=== PATIENT | male | born 1990 | race American Indian/Alaskan Native ===

== ENCOUNTER 2017-03-16 18:49 | Inpatient (IN) | payer OTHER ==
[2017-03-16 20:09] LABS: Basophils # (Auto) 0.1 K/mm3 (0.0-0.1); Basophils % (Auto) 0.4 % (0.0-1.8); Hematocrit 46.6 % (35.5-45.6); Lymphocytes # (Auto) 1.4 K/mm3 (1.2-5.4); Lymphocytes % (Auto) 9.6 % (13.4-35.0); Mean Corpuscular HGB Conc 35 % (32-34); Mean Corpuscular Hemoglobin 33 pg (28-32); Mean Corpuscular Volume 96 fl (84-94); Monocytes # (Auto) 0.8 K/mm3 (0.0-0.8); Monocytes % (Auto) 5.4 % (0.0-7.3); Platelet Count 254 K/mm3 (140-440); Red Blood Count 4.87 M/mm3 (3.65-5.03)
[2017-03-16 20:27] LABS: BUN/Creatinine Ratio 11; Blood Urea Nitrogen 10 mg/dL (9-20); Calcium 9.9 mg/dL (8.4-10.2); Hemolysis Index 7
[2017-03-17 02:07] LABS: Bacteria,Urine 1+ /HPF (Negative); Bilirubin,Urine NEG (Negative); Blood,Urine NEG (Negative); Color,Urine Amber (Yellow); Hyaline Casts,Urine 1 /LPF; Mucus,Urine 3+ /HPF; Nitrite,Urine NEG (Negative); Protein,Urine <15 mg/dL mg/dL (Negative); Sperm,Urine FEW /HPF (NP); Urobilinogen,Urine < 2.0 mg/dL (<2.0)
[2017-03-17 02:11] LABS: Cannabinoid Screen,Urine PRESUMPTIVE NEGATIVE; Cocaine Screen,Urine PRESUMPTIVE NEGATIVE; Methadone Screen,Urine PRESUMPTIVE NEGATIVE; Opiate Screen,Urine PRESUMPTIVE NEGATIVE
[2017-03-17 02:36] LABS: Amphetamine Screen,Urine PRESUMPTIVE POSITIVE; Benzodiazepines Screen,Urine PRESUMPTIVE POSITIVE
[2017-03-17] MEDS ORDERED: NACL 0.9% 1000 ML 1,000 ML IV ONE (04:03)
[2017-03-17] MEDS ORDERED: ATIVAN IV ONE ×2 (05:27→07:01)
--- NOTE | 2017-03-17 06:37 | Emergency Department Report ---
ED General Adult HPI - General Chief complaint: Pain General Stated complaint: LEFT LEG PAIN Time Seen by Provider: 03/17/17 06:36 Source: patient, family Mode of arrival: Ambulatory Limitations: Other (patient is intoxicated) - History of Present Illness Initial comments: This is a 26-year-old male, the patient is previously unknown to this provider. History is obtained by speaking to the patient and his father, Mr. Parminder Trammell; [phone]. As per father, patient was in his usual state of health, and ingested drugs yesterday. There was no trauma, no homicidality, no suicidality. Patient has no complaints at this time. His father endorses that the patient has had left lower extremity swelling which has been atraumatic for 1 month. Patient is very disorganized, and can therefore not describe exacerbating or relieving factors. -: Gradual Location: left, lower extremity Severity scale (0 -10): 0 Consistency: constant Improves with: none Worsens with: none Associated Symptoms: denies: chest pain, cough, diaphoresis, fever/chills, loss of appetite, malaise, shortness of breath, syncope, weakness - Related Data Home Medications Medication Instructions Recorded Confirmed Last Taken Albuterol Sulfate [Albuterol 0.63%] 0.63 mg IH TID PRN 07/18/13 07/18/13 Previous Rx's Medication Instructions Recorded Last Taken Type Ciprofloxacin HCl [Cipro] 500 mg PO Q12H #14 tab 07/19/[address] [Voltaren Dr] 75 mg PO Q12H #20 tablet 07/19/13 Unknown Rx traMADol [Ultram 50 MG tab] 50 mg PO Q6HR PRN #20 tablet 07/19/13 Unknown Rx Allergies Allergy/AdvReac Type Severity Reaction Status Date / Time No Known Allergies Allergy Verified 07/18/13 22:59 ED Review of Systems ROS: Stated complaint: LEFT LEG PAIN Other details as noted in HPI ED Past Medical Hx - Past Medical History Previous Medical History?: Yes Hx Psychiatric Treatment: Yes (Addition to drugs) - Surgical History Past Surgical History?: No - Social History Smoking Status: Current Every Day Smoker Substance Use Type: Other - Medications Home Medications: Home Medications Medication Instructions Recorded Confirmed Last Taken Type Albuterol Sulfate [Albuterol 0.63%] 0.63 mg IH TID PRN 07/18/13 07/18/13 History Ciprofloxacin HCl [Cipro] 500 mg PO Q12H #14 tab 07/19/[address] [Voltaren Dr] 75 mg PO Q12H #20 tablet 07/19/13 Unknown Rx traMADol [Ultram 50 MG tab] 50 mg PO Q6HR PRN #20 tablet 07/19/13 Unknown Rx ED Physical Exam - General Limitations: Other (the patient is intoxicated) General appearance: appears intoxicated, anxious - Head Head exam: Present: atraumatic, normocephalic - Eye Eye exam: Present: normal appearance, PERRL, EOMI. Absent: nystagmus - ENT ENT exam: Present: normal exam, normal orophraynx, mucous membranes moist - Neck Neck exam: Present: normal inspection, full ROM - Respiratory Respiratory exam: Present: normal lung sounds bilaterally. Absent: respiratory distress - Cardiovascular Cardiovascular Exam: Present: normal rhythm, tachycardia, normal heart sounds. Absent: systolic murmur, diastolic murmur, rubs, gallop - GI/Abdominal GI/Abdominal exam: Present: soft, normal bowel sounds. Absent: distended, tenderness, guarding, rebound, rigid, pulsatile mass - Rectal Rectal exam: Present: deferred - Extremities Exam Extremities exam: Present: normal inspection, full ROM, normal capillary refill , other (the left lower extremity is asymmetrically swollen compared to the right. There is no tenderness, redness, pus or streaking. There is no pain with passive range of motion). Absent: pedal edema, joint swelling, calf tenderness - Back Exam Back exam: Present: normal inspection, full ROM. Absent: tenderness, CVA tenderness (R), paraspinal tenderness, vertebral tenderness - Neurological Exam Neurological exam: Present: alert, CN II-XII intact, normal gait. Absent: motor sensory deficit - Psychiatric Psychiatric exam: Absent: homicidal ideation, suicidal ideation - Skin Skin exam: Present: warm, dry, intact, normal color. Absent: rash ED Course Vital Signs 03/16/17 03/17/17 03/17/17 19:20 00:39 05:26 Temperature 98.2 F 98.9 F 97.5 F L Pulse Rate 136 H 102 H 120 H Respiratory 17 20 18 Rate Blood Pressure 158/114 173/102 Blood Pressure 191/126 [Right] O2 Sat by Pulse 99 98 98 Oximetry - Reevaluation(s) Reevaluation #1: 03/17/17 09:20 Patient found to have occlusive left lower extremity DVT. Therapeutic Lovenox is ordered. The Hospital physician is informed. I will defer to their workup to further evaluate in the emesis. No chest pain, no shortness of breath. ED Medical Decision Making - Lab Data Result diagrams: 03/16/17 19:56 03/16/17 19:56 Vital Signs 03/16/17 03/17/17 03/17/17 19:20 00:39 05:26 Temperature 98.2 F 98.9 F 97.5 F L Pulse Rate 136 H 102 H 120 H Respiratory 17 20 18 Rate Blood Pressure 158/114 173/102 Blood Pressure 191/126 [Right] O2 Sat by Pulse 99 98 98 Oximetry Lab Results 03/16/17 03/16/17 03/16/17 Range/Units 19:56 19:56 19:56 WBC 14.5 H (4.5-11.0) K/mm3 RBC 4.87 (3.65-5.03) M/mm3 Hgb 16.0 H (11.8-15.2) gm/dl Hct 46.6 H (35.5-45.6) % MCV 96 H (84-94) fl MCH 33 H (28-32) pg MCHC 35 H (32-34) % RDW 12.0 L (13.2-15.2) % Plt Count 254 (140-440) K/mm3 Lymph % (Auto) 9.6 L (13.4-35.0) % [place] % (Auto) 5.4 (0.0-7.3) % Eos % (Auto) 0.0 (0.0-4.3) % Baso % (Auto) 0.4 (0.0-1.8) % Lymph # 1.4 (1.2-5.4) K/mm3 [place] # 0.8 (0.0-0.8) K/mm3 Eos # 0.0 (0.0-0.4) K/mm3 Baso # 0.1 (0.0-0.1) K/mm3 Seg Neutrophils % 84.6 H (40.0-70.0) % Seg Neutrophils # 12.3 H (1.8-7.7) K/mm3 Sodium 137 (137-145) mmol/L Potassium 3.9 (3.6-5.0) mmol/L Chloride 93.7 L (98-107) mmol/L Carbon Dioxide 23 (22-30) mmol/L Anion Gap 24 mmol/L BUN 10 (9-20) mg/dL Creatinine 0.9 (0.8-1.5) mg/dL Estimated GFR > 60 ml/min BUN/Creatinine Ratio 11 % Glucose 139 H (75-100) mg/dL Calcium 9.9 (8.4-10.2) mg/dL Total Creatine Kinase (55-170) units/L TSH (0.270-4.200) mlU/mL Urine Color (Yellow) Urine Turbidity (Clear) Urine pH (5.0-7.0) Ur Specific [place] (1.003-1.030) Urine Protein (Negative) mg/dL Urine Glucose (UA) (Negative) mg/dL Urine Ketones (Negative) mg/dL Urine Blood (Negative) Urine Nitrite (Negative) Urine Bilirubin (Negative) Urine Urobilinogen (<2.0) mg/dL Ur Leukocyte Esterase (Negative) Urine WBC (Auto) (0.0-6.0) /HPF Urine RBC (Auto) (0.0-6.0) /HPF U Epithel Cells (Auto) (0-13.0) /HPF Urine Bacteria (Auto) (Negative) /HPF Hyaline Casts /LPF Urine Mucus /HPF Urine Sperm (MANAGER DIGITAL) /HPF Urine Opiates Screen Urine Methadone Screen Ur Barbiturates Screen Ur Phencyclidine Scrn Ur Amphetamines Screen U Benzodiazepines Scrn Urine Cocaine Screen U Marijuana (THC) Screen Drugs of Abuse Note Plasma/Serum Alcohol < 0.01 (0-0.07) gm% 03/17/17 03/17/17 03/17/17 Range/Units 00:51 00:51 04:19 WBC (4.5-11.0) K/mm3 RBC (3.65-5.03) M/mm3 Hgb (11.8-15.2) gm/dl Hct (35.5-45.6) % MCV (84-94) fl MCH (28-32) pg MCHC (32-34) % RDW (13.2-15.2) % Plt Count (140-440) K/mm3 Lymph % (Auto) (13.4-35.0) % [place] % (Auto) (0.0-7.3) % Eos % (Auto) (0.0-4.3) % Baso % (Auto) (0.0-1.8) % Lymph # (1.2-5.4) K/mm3 [place] # (0.0-0.8) K/mm3 Eos # (0.0-0.4) K/mm3 Baso # (0.0-0.1) K/mm3 Seg Neutrophils % (40.0-70.0) % Seg Neutrophils # (1.8-7.7) K/mm3 Sodium (137-145) mmol/L Potassium (3.6-5.0) mmol/L Chloride (98-107) mmol/L Carbon Dioxide (22-30) mmol/L Anion Gap mmol/L BUN (9-20) mg/dL Creatinine (0.8-1.5) mg/dL Estimated GFR ml/min BUN/Creatinine Ratio % Glucose (75-100) mg/dL Calcium (8.4-10.2) mg/dL Total Creatine Kinase 270 H (55-170) units/L TSH (0.270-4.200) mlU/mL Urine Color [place] (Yellow) Urine Turbidity Clear (Clear) Urine pH 5.0 (5.0-7.0) Ur Specific [place] 1.031 H (1.003-1.030) Urine Protein <15 mg/dl (Negative) mg/dL Urine Glucose (UA) Neg (Negative) mg/dL Urine Ketones Neg (Negative) mg/dL Urine Blood Neg (Negative) Urine Nitrite Neg (Negative) Urine Bilirubin Neg (Negative) Urine Urobilinogen < 2.0 (<2.0) mg/dL Ur Leukocyte Esterase Tr (Negative) Urine WBC (Auto) 3.0 (0.0-6.0) /HPF Urine RBC (Auto) 2.0 (0.0-6.0) /HPF U Epithel Cells (Auto) < 1.0 (0-13.0) /HPF Urine Bacteria (Auto) 1+ (Negative) /HPF Hyaline Casts 1 /LPF Urine Mucus 3+ /HPF Urine Sperm Few (MANAGER DIGITAL) /HPF Urine Opiates Screen Presumptive negative Urine Methadone Screen Presumptive negative Ur Barbiturates Screen Presumptive negative Ur Phencyclidine Scrn Presumptive negative Ur Amphetamines Screen Presumptive positive U Benzodiazepines Scrn Presumptive positive Urine Cocaine Screen Presumptive negative U Marijuana (THC) Screen Presumptive negative Drugs of Abuse Note Disclamer Plasma/Serum Alcohol (0-0.07) gm% 03/17/17 Range/Units 04:19 WBC (4.5-11.0) K/mm3 RBC (3.65-5.03) M/mm3 Hgb (11.8-15.2) gm/dl Hct (35.5-45.6) % MCV (84-94) fl MCH (28-32) pg MCHC (32-34) % RDW (13.2-15.2) % Plt Count (140-440) K/mm3 Lymph % (Auto) (13.4-35.0) % [place] % (Auto) (0.0-7.3) % Eos % (Auto) (0.0-4.3) % Baso % (Auto) (0.0-1.8) % Lymph # (1.2-5.4) K/mm3 [place] # (0.0-0.8) K/mm3 Eos # (0.0-0.4) K/mm3 Baso # (0.0-0.1) K/mm3 Seg Neutrophils % (40.0-70.0) % Seg Neutrophils # (1.8-7.7) K/mm3 Sodium (137-145) mmol/L Potassium (3.6-5.0) mmol/L Chloride (98-107) mmol/L Carbon Dioxide (22-30) mmol/L Anion Gap mmol/L BUN (9-20) mg/dL Creatinine (0.8-1.5) mg/dL Estimated GFR ml/min BUN/Creatinine Ratio % Glucose (75-100) mg/dL Calcium (8.4-10.2) mg/dL Total Creatine Kinase (55-170) units/L TSH 0.180 L (0.270-4.200) mlU/mL Urine Color (Yellow) Urine Turbidity (Clear) Urine pH (5.0-7.0) Ur Specific [place] (1.003-1.030) Urine Protein (Negative) mg/dL Urine Glucose (UA) (Negative) mg/dL Urine Ketones (Negative) mg/dL Urine Blood (Negative) Urine Nitrite (Negative) Urine Bilirubin (Negative) Urine Urobilinogen (<2.0) mg/dL Ur Leukocyte Esterase (Negative) Urine WBC (Auto) (0.0-6.0) /HPF Urine RBC (Auto) (0.0-6.0) /HPF U Epithel Cells (Auto) (0-13.0) /HPF Urine Bacteria (Auto) (Negative) /HPF Hyaline Casts /LPF Urine Mucus /HPF Urine Sperm (MANAGER DIGITAL) /HPF Urine Opiates Screen Urine Methadone Screen Ur Barbiturates Screen Ur Phencyclidine Scrn Ur Amphetamines Screen U Benzodiazepines Scrn Urine Cocaine Screen U Marijuana (THC) Screen Drugs of Abuse Note Plasma/Serum Alcohol (0-0.07) gm% - EKG Data Rate: tachycardia - EKG Data When compared to previous EKG there are: previous EKG unavailable 03/17/17 07:28 Sinus tachycardia, 103 133 bpm, QTC prolonged at 450 ms, atrial enlargement, normal axis, not morphologically consistent with ST elevation myocardial infarction Assessment and plan: 26-year-old male - Radiology Data Radiology results: report reviewed interpreted by me: [facility] MAYNARDELY Male : 1990 MedRec# [id number] 03/17/17 09:20 - Radiology Dept. Note by PARISH RODRIGUEZ Acct Num: [id number] : 1990 Patient Age: 26 VASCULAR LAB PRELIMINARY REPORT LLE VENOUS DOPPLER COMPLETED ACUTE OCCLUSIVE DVT NOTED IN LT POP V, GASTROC V EXTENDING TO CALF VESSELS DR. ALEMAN INFORMED Initialized on 03/17/17 09:20 - END OF NOTE Differential diagnosis, including but not limited to: Hypertensive urgency, toxic encephalopathy, sympathomimetic toxicity Assessment and plan: 26-year-old male who is disorganized but not homicidal or suicidal, tachycardic, hypertensive, with clinical sympathomimetic toxicity and intoxication. Patient has been in the ER for hours and is still intoxicated. He was given 1 L of normal saline, 1 mg of Ativan prior to my arrival, and is still initiating abnormal vital signs. He has no risk factors for DVT, but the left lower extremity is asymmetrically swollen compared to the right. As per history obtained from his father, there is no trauma, and there are no DVT or pulmonary embolus risk factors. Left lower extremity ultrasound is ordered. Additional Ativan is ordered. Hydralazine ordered. Patient will require medical admission for toxic encephalopathy. I will also obtain a mental health consult, to facilitate an patient's placement. Serum toxicology studies ordered. No indication for charcoal at this time. Case presented to Hospital nurse practitioner, Kia Diehl who accepted the patient to the medical service. I will defer to the inpatient team to follow-up on the lower extremity DVT study, as well as the serum toxicology studies. Critical care attestation.: If time is entered above; I have spent that time in minutes in the direct care of this critically ill patient, excluding procedure time. ED Disposition Clinical Impression: Poisoning by sympathomimetics (adrenergics) Qualifiers: Encounter type: initial encounter Injury intent: undetermined intent Qualified Code(s): T44.904A - Poisoning by unspecified drugs primarily affecting the autonomic nervous system, undetermined, initial encounter Left leg DVT Qualifiers: Affected thrombotic vein of extremity: unspecified lower extremity distal vein Chronicity: unspecified Qualified Code(s): I82.4Z2 - Acute embolism and thrombosis of unspecified deep veins of left distal lower extremity Disposition: 09 OP ADMIT IP TO THIS HOSP Is pt being admited?: Yes Condition: Good Referrals: PRIMARY CARE, [Primary Care Provider] - 3-5 Days
[2017-03-17] MEDS ORDERED: APRESOLINE IV ONE (08:28)
--- NOTE | 2017-03-17 08:49 | History and Physical Report ---
History of Present Illness Date of examination: 03/17/17 Date of admission: 03/17/16 Chief complaint: Altered mental status after using Amphetamines pain and swelling left leg x 1 month History of present illness: Patient is 26 yo with history of substance abuse. he was brought in because of altered mental status, confused after using Amphetamines day before. In Emergency room his BP was very high at 158/114. He was confused, disoriented and could not give much history. Some history was obtained from his father. Patient was diagnosed with encephalopathy and hypertensive urgency due to Amphetamine use. He also had swelling left leg and Doppler revealed acute DVT left leg. He will be admitted for further management. Past History Past Medical History: other (Amphetamine use) Past Surgical History: No surgical history Social history: full code, other (Amphetamine use). denies: smoking, alcohol abuse Family history: no significant family history Medications and Allergies Allergies Allergy/AdvReac Type Severity Reaction Status Date / Time No Known Allergies Allergy Verified 07/18/13 22:59 Home Medications Medication Instructions Recorded Confirmed Last Taken Type No Known Home Medications [No 03/17/17 03/17/17 Unknown History Reported Home Medications] Review of Systems ROS unobtainable: due to mental status Exam - Physical Exam Narrative exam: EN APPEARANCE : Not in acute distress, confused HEENT: Normocephalic, Atraumatic NECK : supple, no JVD LUNGS: Clear to auscultation bilaterally, no rales, no wheeze HEART: S1 and S2 regular tachy, no murmurs, rubs or gallop ABD: Soft, non tender, non distended, normal bowel sounds EXT: Left leg edema, NEURO: Awake,alert, disoriented, confused, moves all ext, follows commands - Constitutional Vitals: Temp Pulse Resp BP Pulse Ox 97.5 F L 120 H 18 191/126 98 03/17/17 05:26 03/17/17 05:26 03/17/17 05:26 03/17/17 05:26 03/17/17 05:26 Results - Labs CBC & Chem 7: 03/19/17 08:20 03/18/17 05:42 Labs: Abnormal lab results 03/16/17 03/16/17 03/17/17 Range/Units 19:56 19:56 00:51 WBC 14.5 H (4.5-11.0) K/mm3 Hgb 16.0 H (11.8-15.2) gm/dl Hct 46.6 H (35.5-45.6) % MCV 96 H (84-94) fl MCH 33 H (28-32) pg MCHC 35 H (32-34) % RDW 12.0 L (13.2-15.2) % Lymph % (Auto) 9.6 L (13.4-35.0) % Seg Neutrophils % 84.6 H (40.0-70.0) % Seg Neutrophils # 12.3 H (1.8-7.7) K/mm3 Chloride 93.7 L (98-107) mmol/L Glucose 139 H (75-100) mg/dL Total Creatine Kinase (55-170) units/L TSH (0.270-4.200) mlU/mL Ur Specific [place] 1.031 H (1.003-1.030) Salicylates (2.8-20.0) mg/dL 03/17/17 03/17/17 03/17/17 Range/Units 04:19 04:19 04:19 WBC (4.5-11.0) K/mm3 Hgb (11.8-15.2) gm/dl Hct (35.5-45.6) % MCV (84-94) fl MCH (28-32) pg MCHC (32-34) % RDW (13.2-15.2) % Lymph % (Auto) (13.4-35.0) % Seg Neutrophils % (40.0-70.0) % Seg Neutrophils # (1.8-7.7) K/mm3 Chloride (98-107) mmol/L Glucose (75-100) mg/dL Total Creatine Kinase 270 H (55-170) units/L TSH 0.180 L (0.270-4.200) mlU/mL Ur Specific [place] (1.003-1.030) Salicylates < 0.3 L (2.8-20.0) mg/dL Assessment and Plan Hypertensive urgency due Amphetamine use.. Admit to Tele. Give Xanax scheduled. Start Amlodipine daily. Clonidine po prn Amphetamine use. Psych consulted. Will discuss with him when confusion resolves. Toxic metabolic encephalopathy due to Amphetamine. Acute DVT left leg. Started on Lovenox 1mg/kg subcut bid. Consult Hematology Full code status
[2017-03-17] MEDS ORDERED: TYLENOL PO PRN (08:50)
[2017-03-17] MEDS ORDERED: ZOFRAN IV PRN (08:50)
[2017-03-17] MEDS ORDERED: MILK OF MAGNESIA PO PRN (08:50)
[2017-03-17] MEDS ORDERED: DULCOLAX PR PRN (08:50)
[2017-03-17] MEDS ORDERED: LOVENOX SUB-Q ONE (09:17)
[2017-03-17] MEDS ORDERED: ATIVAN ONE (09:46)
[2017-03-17] MEDS ORDERED: CATAPRES PO PRN (11:38)
--- NOTE | 2017-03-17 12:20 | Consultation ---
History of Present Illness - Reason for Consult Consult date: 03/17/17 Reason for consult: Mental Health Evaluation Requesting physician: GURMEET ALEMAN - Chief Complaint Chief complaint: "I did Collin" - History of Present Psychiatric Illness 26 y.o. AA male presenting to [facility] for ingesting "drugs." Today patient is calm cooperative, but disorganized with some of his thought content during the assessment. He stated that he took "collin." He stated that he stop "doing Collin " a year ago, but decided yesterday to use the recreational drug again. He stated that he "probably" shouldn't have done that. The patient had to be redirected throughout the interview to keep him on topic. Per the staff, no behavioral disturbance since his admission. He denies SI/HI's, AVH's, and alcohol consumptions (etoh). Medications and Allergies Allergies Allergy/AdvReac Type Severity Reaction Status Date / Time No Known Allergies Allergy Verified 07/18/13 22:59 Home Medications Medication Instructions Recorded Confirmed Last Taken Type No Known Home Medications [No 03/17/17 03/17/17 Unknown History Reported Home Medications] Active Meds: Active Medications Acetaminophen (Tylenol) 650 mg PO Q4H PRN PRN Reason: Pain MILD(1-3)/Fever >100.5/ROMO Alprazolam (Xanax) 0.25 mg PO Q12HR LAKISHA Amlodipine Besylate (Norvasc) 5 mg PO QDAY LAKISHA Bisacodyl (Dulcolax) 10 mg NH QDAY PRN PRN Reason: Constipation unrelieved by MOM Clonidine HCl (Catapres) 0.2 mg PO Q4H PRN PRN Reason: SBP>170 or DBP >110 Enoxaparin Sodium (Lovenox) 40 mg SUB-Q QDAY [place]AKISHA Magnesium Hydroxide (Milk Of Magnesia) 30 ml PO Q4H PRN PRN Reason: Constipation Ondansetron HCl (Zofran) 4 mg IV Q6H PRN PRN Reason: Nausea And Vomiting Mental Status Exam - Vital signs Last Vital Signs Temp 98.3 F 03/17/17 09:38 Pulse 107 H 03/17/17 10:05 Resp 20 03/17/17 09:38 BP 166/103 03/17/17 10:05 Pulse Ox 99 03/17/17 09:38 - Exam Narrative exam: MSE: Appearance: calm, cooperative Behavior: good eye contact Speech: regular rate and tone Mood: "okay" Affect: blunted Thought Process: circumstantial Thought Content: denies SI/HI's and AVH's, disorganized Motor Activity: ambulatory Cognition: A/Ox3 Insight: variable Judgment: variable Results Result Diagrams: 03/16/17 19:56 03/16/17 19:56 Abnormal lab results 03/16/17 03/16/17 03/17/17 Range/Units 19:56 19:56 00:51 WBC 14.5 H (4.5-11.0) K/mm3 Hgb 16.0 H (11.8-15.2) gm/dl Hct 46.6 H (35.5-45.6) % MCV 96 H (84-94) fl MCH 33 H (28-32) pg MCHC 35 H (32-34) % RDW 12.0 L (13.2-15.2) % Lymph % (Auto) 9.6 L (13.4-35.0) % Seg Neutrophils % 84.6 H (40.0-70.0) % Seg Neutrophils # 12.3 H (1.8-7.7) K/mm3 Chloride 93.7 L (98-107) mmol/L Glucose 139 H (75-100) mg/dL Total Creatine Kinase (55-170) units/L TSH (0.270-4.200) mlU/mL Ur Specific [place] 1.031 H (1.003-1.030) Salicylates (2.8-20.0) mg/dL 03/17/17 03/17/17 03/17/17 Range/Units 04:19 04:19 04:19 WBC (4.5-11.0) K/mm3 Hgb (11.8-15.2) gm/dl Hct (35.5-45.6) % MCV (84-94) fl MCH (28-32) pg MCHC (32-34) % RDW (13.2-15.2) % Lymph % (Auto) (13.4-35.0) % Seg Neutrophils % (40.0-70.0) % Seg Neutrophils # (1.8-7.7) K/mm3 Chloride (98-107) mmol/L Glucose (75-100) mg/dL Total Creatine Kinase 270 H (55-170) units/L TSH 0.180 L (0.270-4.200) mlU/mL Ur Specific [place] (1.003-1.030) Salicylates < 0.3 L (2.8-20.0) mg/dL All other labs normal. Assessment and Plan Assessment and plan: Impression: Substance Use DO (amphetamines). Today patient is calm cooperative, but disorganized with some of his thought content during the assessment. Patient positive for benzos and amphetamines. No acute withdrawals noted (benzos ). Medical: Toxic Encephalopathy Recommendation/Plan: Gather collateral information from family to help determine treatment and dispo. Will assess patient daily. Recommend the following precautions below: 1. Frequently reorient patient and involve him in his care (simple explanations of procedures, tests, medications). 2. Lights on and shades open during daytime hours. 3. Try to avoid unnecessary interruptions to sleep during nighttime hours. 4. Obtain glasses, hearing aids from home if patient uses these at baseline. 5. Avoid medications that may exacerbate delirium (especially narcotics, barbiturates, ambien, lunesta, benzos, and medications with excessive anticholinergic properties).
[2017-03-17] MEDS ORDERED: NORVASC ONE (12:24)
[2017-03-17] MEDS ORDERED: XANAX ONE (12:24)
[2017-03-17] MEDS: NORVASC PO SCH (12:28)
[2017-03-17] MEDS: XANAX PO SCH ×2 (12:28→23:05)
[2017-03-17] MEDS: LOVENOX SUB-Q SCH (23:05)
[2017-03-18 06:05] LABS: Basophils # (Auto) 0.1 K/mm3 (0.0-0.1); Basophils % (Auto) 0.7 % (0.0-1.8); Eosinophils % (Auto) 0.5 % (0.0-4.3); Hemoglobin 15.5 gm/dl (11.8-15.2); Lymphocytes # (Auto) 1.9 K/mm3 (1.2-5.4); Lymphocytes % (Auto) 25.7 % (13.4-35.0); Mean Corpuscular HGB Conc 34 % (32-34); Mean Corpuscular Hemoglobin 33 pg (28-32); Mean Corpuscular Volume 97 fl (84-94); Monocytes # (Auto) 0.9 K/mm3 (0.0-0.8); Monocytes % (Auto) 11.3 % (0.0-7.3); Platelet Count 223 K/mm3 (140-440); Red Blood Count 4.66 M/mm3 (3.65-5.03); Red Cell Distribution Width 12.4 % (13.2-15.2)
[2017-03-18 06:28] LABS: BUN/Creatinine Ratio 11; Blood Urea Nitrogen 10 mg/dL (9-20); Calcium 9.5 mg/dL (8.4-10.2); Hemolysis Index 13
[2017-03-18] MEDS ORDERED: LOVENOX SUB-Q SCH (10:00)
[2017-03-18] MEDS: NORVASC PO SCH (11:18)
[2017-03-18] MEDS: LOVENOX SUB-Q SCH ×2 (11:18→22:11)
[2017-03-18] MEDS: XANAX PO SCH ×2 (11:18→22:11)
--- NOTE | 2017-03-18 14:07 | Hem/Onc Progress Note ---
Subjective Date of service: 03/18/17 Interval history: Patient has DVT right leg. No pulm complaints. Swelling has decreased on Lovenox. - recommend coumadin x 3 mo outpatient f/u to discuss results of hypercoag workup Objective - Constitutional Vitals: Last Vital Signs Temp 98.2 F 03/18/17 12:02 Pulse 75 03/18/17 12:02 Resp 20 03/18/17 12:02 BP 120/76 03/18/17 12:02 Pulse Ox 97 03/18/17 12:02 Pain Intensity (0-10): 0/10 General appearance: no acute distress, mild distress - EENT Eyes: PERRL, EOM intact ENT: hearing intact, clear oral mucosa, dentition normal - Neck Neck: supple, normal ROM - Respiratory Respiratory effort: Positive: normal Respiratory: bilateral: CTA - Cardiovascular Rhythm: regular Heart Sounds: Present: S1 & S2 Extremities: No edema - Labs Lab Results: Laboratory Results - last 24 hr 03/18/17 03/18/17 05:42 05:42 WBC 7.6 RBC 4.66 Hgb 15.5 H Hct 45.0 MCV 97 H MCH 33 H MCHC 34 RDW 12.4 L Plt Count 223 Lymph % (Auto) 25.7 [place] % (Auto) 11.3 H Eos % (Auto) 0.5 Baso % (Auto) 0.7 Lymph # 1.9 [place] # 0.9 H Eos # 0.0 Baso # 0.1 Seg Neutrophils % 61.8 Seg Neutrophils # 4.7 Sodium 138 Potassium 4.5 Chloride 99.2 Carbon Dioxide 24 Anion Gap 19 BUN 10 Creatinine 0.9 Estimated GFR > 60 BUN/Creatinine Ratio 11 Glucose 101 H Calcium 9.5
--- NOTE | 2017-03-18 18:06 | Progress Note ---
Assessment and Plan Assessment and plan: Hypertensive urgency due Amphetamine use.. Admitted to Tele. Continue Xanax scheduled. Started Amlodipine daily. BP improving. Clonidine po prn Amphetamine use. Psych consulted. Will discuss with him when confusion resolves. Toxic metabolic encephalopathy due to Amphetamine. Acute DVT left leg. Started on Lovenox 1mg/kg subcut bid. Consult Hematology. Start Coumadin. Full code status History Interval history: Less confused Less pain left leg No chest pain Hospitalist Physical - Physical exam Narrative exam: EN APPEARANCE : Not in acute distress, less confused HEENT: Normocephalic, Atraumatic NECK : supple, no JVD LUNGS: Clear to auscultation bilaterally, no rales, no wheeze HEART: S1 and S2 regular tachy, no murmurs, rubs or gallop ABD: Soft, non tender, non distended, normal bowel sounds EXT: Left leg edema, redness NEURO: Awake,alert, disoriented, confused, moves all ext, follows commands - Constitutional Vitals: Temp Pulse Resp BP Pulse Ox 98.2 F 75 20 120/76 97 03/18/17 12:02 03/18/17 12:02 03/18/17 12:02 03/18/17 12:02 03/18/17 12:02 Results - Labs CBC & Chem 7: 03/19/17 08:20 03/18/17 05:42 Labs: Laboratory Last Values WBC 7.6 K/mm3 (4.5-11.0) 03/18/17 05:42 RBC 4.66 M/mm3 (3.65-5.03) 03/18/17 05:42 Hgb 15.5 gm/dl (11.8-15.2) H 03/18/17 05:42 Hct 45.0 % (35.5-45.6) 03/18/17 05:42 MCV 97 fl (84-94) H 03/18/17 05:42 MCH 33 pg (28-32) H 03/18/17 05:42 MCHC 34 % (32-34) 03/18/17 05:42 RDW 12.4 % (13.2-15.2) L 03/18/17 05:42 Plt Count 223 K/mm3 (140-440) 03/18/17 05:42 Lymph % (Auto) 25.7 % (13.4-35.0) 03/18/17 05:42 [place] % (Auto) 11.3 % (0.0-7.3) H 03/18/17 05:42 Eos % (Auto) 0.5 % (0.0-4.3) 03/18/17 05:42 Baso % (Auto) 0.7 % (0.0-1.8) 03/18/17 05:42 Lymph # 1.9 K/mm3 (1.2-5.4) 03/18/17 05:42 [place] # 0.9 K/mm3 (0.0-0.8) H 03/18/17 05:42 Eos # 0.0 K/mm3 (0.0-0.4) 03/18/17 05:42 Baso # 0.1 K/mm3 (0.0-0.1) 03/18/17 05:42 Seg Neutrophils % 61.8 % (40.0-70.0) 03/18/17 05:42 Seg Neutrophils # 4.7 K/mm3 (1.8-7.7) 03/18/17 05:42 Sodium 138 mmol/L (137-145) 03/18/17 05:42 Potassium 4.5 mmol/L (3.6-5.0) 03/18/17 05:42 Chloride 99.2 mmol/L (98-107) 03/18/17 05:42 Carbon Dioxide 24 mmol/L (22-30) 03/18/17 05:42 Anion Gap 19 mmol/L 03/18/17 05:42 BUN 10 mg/dL (9-20) 03/18/17 05:42 Creatinine 0.9 mg/dL (0.8-1.5) 03/18/17 05:42 Estimated GFR > 60 ml/min 03/18/17 05:42 BUN/Creatinine Ratio 11 % 03/18/17 05:42 Glucose 101 mg/dL (75-100) H 03/18/17 05:42 Calcium 9.5 mg/dL (8.4-10.2) 03/18/17 05:42 Total Creatine Kinase 270 units/L (55-170) H 03/17/17 04:19 TSH 0.180 mlU/mL (0.270-4.200) L 03/17/17 04:19 Free T4 1.28 ng/dL (0.76-1.46) 03/17/17 04:19 Urine Color [place] (Yellow) 03/17/17 00:51 Urine Turbidity Clear (Clear) 03/17/17 00:51 Urine pH 5.0 (5.0-7.0) 03/17/17 00:51 Ur Specific [place] 1.031 (1.003-1.030) H 03/17/17 00:51 Urine Protein <15 mg/dl mg/dL (Negative) 03/17/17 00:51 Urine Glucose (UA) Neg mg/dL (Negative) 03/17/17 00:51 Urine Ketones Neg mg/dL (Negative) 03/17/17 00:51 Urine Blood Neg (Negative) 03/17/17 00:51 Urine Nitrite Neg (Negative) 03/17/17 00:51 Urine Bilirubin Neg (Negative) 03/17/17 00:51 Urine Urobilinogen < 2.0 mg/dL (<2.0) 03/17/17 00:51 Ur Leukocyte Esterase Tr (Negative) 03/17/17 00:51 Urine WBC (Auto) 3.0 /HPF (0.0-6.0) 03/17/17 00:51 Urine RBC (Auto) 2.0 /HPF (0.0-6.0) 03/17/17 00:51 U Epithel Cells (Auto) < 1.0 /HPF (0-13.0) 03/17/17 00:51 Urine Bacteria (Auto) 1+ /HPF (Negative) 03/17/17 00:51 Hyaline Casts 1 /LPF 03/17/17 00:51 Urine Mucus 3+ /HPF 03/17/17 00:51 Urine Sperm Few /HPF (GRADES 9 THROUGH 12 TEACHER) 03/17/17 00:51 Salicylates < 0.3 mg/dL (2.8-20.0) L 03/17/17 04:19 Urine Opiates Screen Presumptive negative 03/17/17 00:51 Urine Methadone Screen Presumptive negative 03/17/17 00:51 Acetaminophen < 15.0 ug/mL (10.0-30.0) 03/17/17 04:19 Ur Barbiturates Screen Presumptive negative 03/17/17 00:51 Ur Phencyclidine Scrn Presumptive negative 03/17/17 00:51 Ur Amphetamines Screen Presumptive positive 03/17/17 00:51 U Benzodiazepines Scrn Presumptive positive 03/17/17 00:51 Urine Cocaine Screen Presumptive negative 03/17/17 00:51 U Marijuana (THC) Screen Presumptive negative 03/17/17 00:51 Drugs of Abuse Note Disclamer 03/17/17 00:51 Plasma/Serum Alcohol < 0.01 gm% (0-0.07) 03/16/17 19:56
[2017-03-18 18:46] LABS: INR 0.95 (0.87-1.13)
[2017-03-18] MEDS: COUMADIN PO SCH (22:12)
--- NOTE | 2017-03-19 04:20 | Consultation ---
REFERRING PHYSICIAN: Dr. Manuel Steven. REASON FOR CONSULTATION: DVT in the left leg. HISTORY OF PRESENT ILLNESS: The patient is a 26-year-old male who presented to the hospital with disorientation. He had taken amphetamines and was being treated for that, also complained of left leg swelling and was found to have DVT of the left leg. He is started on Lovenox. Hematology consult was called for DVT. The patient does smoke cigarettes. He denies any family history of thrombosis. He denies any prolonged immobilization. PAST MEDICAL HISTORY: Unremarkable. SOCIAL HISTORY: Positive for tobacco abuse. REVIEW OF SYSTEMS: Unremarkable. PHYSICAL EXAMINATION: GENERAL: The patient seems to be slightly confused. HEENT: Unremarkable. CHEST: Clear bilaterally. CARDIOVASCULAR: Regular rate and rhythm. ABDOMEN: Soft, nontender. EXTREMITIES: He has some swelling in the left calf with redness. LABORATORY DATA: Pertinent labs; the patient's hemoglobin was 16, white count 14.5, platelets 254,000. Chemistries: Creatinine of 0.9. ASSESSMENT: 1. Deep vein thrombosis left leg in this young patient. 2. Drug abuse. PLAN: At this time, we will agree with Lovenox. He can be switched to Eliquis or Xarelto once he is stable. I will do hypercoagulable workup. We will follow. Of note, the patient's hemoglobin is high at 16, but he may have an element of dehydration, we will recheck it in the morning. JOB# [id number] JORDYN/DEVON
[2017-03-19 08:36] LABS: Basophils % (Auto) 0.4 % (0.0-1.8); Eosinophils # (Auto) 0.1 K/mm3 (0.0-0.4); Eosinophils % (Auto) 0.8 % (0.0-4.3); Hematocrit 46.5 % (35.5-45.6); Hemoglobin 15.8 gm/dl (11.8-15.2); Lymphocytes # (Auto) 2.4 K/mm3 (1.2-5.4); Lymphocytes % (Auto) 29.4 % (13.4-35.0); Mean Corpuscular HGB Conc 34 % (32-34); Mean Corpuscular Hemoglobin 33 pg (28-32); Mean Corpuscular Volume 98 fl (84-94); Monocytes # (Auto) 0.7 K/mm3 (0.0-0.8); Monocytes % (Auto) 8.3 % (0.0-7.3); Platelet Count 236 K/mm3 (140-440); Red Blood Count 4.77 M/mm3 (3.65-5.03)
[2017-03-19 08:46] LABS: INR 0.95 (0.87-1.13)
[2017-03-19] MEDS: NORVASC PO SCH (09:56)
[2017-03-19] MEDS: LOVENOX SUB-Q SCH ×2 (09:57→21:43)
[2017-03-19] MEDS ORDERED: XANAX PO SCH (10:00)
--- NOTE | 2017-03-19 13:22 | Hem/Onc Progress Note ---
Subjective Date of service: 03/19/17 Interval history: Patient reports discomfort in the medial aspect of his left leg, but reports that the swelling is decreased. He denies any family hx of clotting, or previous clot. Hypercoag workup is pending Patient has been started on coumadin but is subtherpeutic Objective - Constitutional Vitals: Last Vital Signs Temp 98.0 F 03/19/17 11:45 Pulse 82 03/19/17 11:45 Resp 18 03/19/17 11:45 BP 111/65 03/19/17 11:45 Pulse Ox 98 03/19/17 11:45 Pain Intensity (0-10): 03/22 General appearance: no acute distress, mild distress Performance status: 0-fully active - EENT Eyes: PERRL, EOM intact ENT: hearing intact, clear oral mucosa, dentition normal - Neck Neck: normal ROM - Respiratory Respiratory effort: Positive: normal Respiratory: bilateral: CTA - Cardiovascular Rhythm: regular Heart Sounds: Present: S1 & S2 Extremities: no ischemia, pulses intact, No edema - Labs Lab Results: Laboratory Results - last 24 hr 03/18/17 03/19/17 03/19/17 18:28 08:20 08:20 WBC 8.3 RBC 4.77 Hgb 15.8 H Hct 46.5 H MCV 98 H MCH 33 H MCHC 34 RDW 12.0 L Plt Count 236 Lymph % (Auto) 29.4 [place] % (Auto) 8.3 H Eos % (Auto) 0.8 Baso % (Auto) 0.4 Lymph # 2.4 [place] # 0.7 Eos # 0.1 Baso # 0.0 Seg Neutrophils % 61.1 Seg Neutrophils # 5.0 PT 13.1 13.1 INR 0.95 0.95
--- NOTE | 2017-03-19 15:07 | Progress Note ---
Assessment and Plan Assessment and plan: Hypertensive urgency due Amphetamine use.. Admitted to Tele. Continue Xanax scheduled. Started Amlodipine daily. BP improving. May dc Amlodipine if BP remains normal sine he did not have history of hypertension. Clonidine po prn Amphetamine use. Psych consulted. Will discuss with him when confusion resolves. Toxic metabolic encephalopathy due to Amphetamine, improving , more awake,less confused.. Acute DVT left leg. Continue Lovenox 1mg/kg subcut bid and Coumadin. Consulted Hematology. Patient is unfunded. Case management consulted to assist with coupons on newer anticoagulants. Full code status History Interval history: Less confused Less pain left leg No chest pain Hospitalist Physical - Physical exam Narrative exam: EN APPEARANCE : Not in acute distress, less confused HEENT: Normocephalic, Atraumatic NECK : supple, no JVD LUNGS: Clear to auscultation bilaterally, no rales, no wheeze HEART: S1 and S2 regular tachy, no murmurs, rubs or gallop ABD: Soft, non tender, non distended, normal bowel sounds EXT: Left leg edema, redness NEURO: Awake,alert, disoriented, confused, moves all ext, follows commands - Constitutional Vitals: Temp Pulse Resp BP Pulse Ox 98.0 F 82 18 111/65 98 03/19/17 11:45 03/19/17 11:45 03/19/17 11:45 03/19/17 11:45 03/19/17 11:45 Results - Labs CBC & Chem 7: 03/19/17 08:20 03/18/17 05:42 Labs: Laboratory Last Values WBC 8.3 K/mm3 (4.5-11.0) 03/19/17 08:20 RBC 4.77 M/mm3 (3.65-5.03) 03/19/17 08:20 Hgb 15.8 gm/dl (11.8-15.2) H 03/19/17 08:20 Hct 46.5 % (35.5-45.6) H 03/19/17 08:20 MCV 98 fl (84-94) H 03/19/17 08:20 MCH 33 pg (28-32) H 03/19/17 08:20 MCHC 34 % (32-34) 03/19/17 08:20 RDW 12.0 % (13.2-15.2) L 03/19/17 08:20 Plt Count 236 K/mm3 (140-440) 03/19/17 08:20 Lymph % (Auto) 29.4 % (13.4-35.0) 03/19/17 08:20 [place] % (Auto) 8.3 % (0.0-7.3) H 03/19/17 08:20 Eos % (Auto) 0.8 % (0.0-4.3) 03/19/17 08:20 Baso % (Auto) 0.4 % (0.0-1.8) 03/19/17 08:20 Lymph # 2.4 K/mm3 (1.2-5.4) 03/19/17 08:20 [place] # 0.7 K/mm3 (0.0-0.8) 03/19/17 08:20 Eos # 0.1 K/mm3 (0.0-0.4) 03/19/17 08:20 Baso # 0.0 K/mm3 (0.0-0.1) 03/19/17 08:20 Seg Neutrophils % 61.1 % (40.0-70.0) 03/19/17 08:20 Seg Neutrophils # 5.0 K/mm3 (1.8-7.7) 03/19/17 08:20 PT 13.1 Sec. (12.2-14.9) 03/19/17 08:20 INR 0.95 (0.87-1.13) 03/19/17 08:20 Sodium 138 mmol/L (137-145) 03/18/17 05:42 Potassium 4.5 mmol/L (3.6-5.0) 03/18/17 05:42 Chloride 99.2 mmol/L (98-107) 03/18/17 05:42 Carbon Dioxide 24 mmol/L (22-30) 03/18/17 05:42 Anion Gap 19 mmol/L 03/18/17 05:42 BUN 10 mg/dL (9-20) 03/18/17 05:42 Creatinine 0.9 mg/dL (0.8-1.5) 03/18/17 05:42 Estimated GFR > 60 ml/min 03/18/17 05:42 BUN/Creatinine Ratio 11 % 03/18/17 05:42 Glucose 101 mg/dL (75-100) H 03/18/17 05:42 Calcium 9.5 mg/dL (8.4-10.2) 03/18/17 05:42 Total Creatine Kinase 270 units/L (55-170) H 03/17/17 04:19 TSH 0.180 mlU/mL (0.270-4.200) L 03/17/17 04:19 Free T4 1.28 ng/dL (0.76-1.46) 03/17/17 04:19 Urine Color [place] (Yellow) 03/17/17 00:51 Urine Turbidity Clear (Clear) 03/17/17 00:51 Urine pH 5.0 (5.0-7.0) 03/17/17 00:51 Ur Specific [place] 1.031 (1.003-1.030) H 03/17/17 00:51 Urine Protein <15 mg/dl mg/dL (Negative) 03/17/17 00:51 Urine Glucose (UA) Neg mg/dL (Negative) 03/17/17 00:51 Urine Ketones Neg mg/dL (Negative) 03/17/17 00:51 Urine Blood Neg (Negative) 03/17/17 00:51 Urine Nitrite Neg (Negative) 03/17/17 00:51 Urine Bilirubin Neg (Negative) 03/17/17 00:51 Urine Urobilinogen < 2.0 mg/dL (<2.0) 03/17/17 00:51 Ur Leukocyte Esterase Tr (Negative) 03/17/17 00:51 Urine WBC (Auto) 3.0 /HPF (0.0-6.0) 03/17/17 00:51 Urine RBC (Auto) 2.0 /HPF (0.0-6.0) 03/17/17 00:51 U Epithel Cells (Auto) < 1.0 /HPF (0-13.0) 03/17/17 00:51 Urine Bacteria (Auto) 1+ /HPF (Negative) 03/17/17 00:51 Hyaline Casts 1 /LPF 03/17/17 00:51 Urine Mucus 3+ /HPF 03/17/17 00:51 Urine Sperm Few /HPF (SLIP COVER SEAMSTRESS) 03/17/17 00:51 Salicylates < 0.3 mg/dL (2.8-20.0) L 03/17/17 04:19 Urine Opiates Screen Presumptive negative 03/17/17 00:51 Urine Methadone Screen Presumptive negative 03/17/17 00:51 Acetaminophen < 15.0 ug/mL (10.0-30.0) 03/17/17 04:19 Ur Barbiturates Screen Presumptive negative 03/17/17 00:51 Ur Phencyclidine Scrn Presumptive negative 03/17/17 00:51 Ur Amphetamines Screen Presumptive positive 03/17/17 00:51 U Benzodiazepines Scrn Presumptive positive 03/17/17 00:51 Urine Cocaine Screen Presumptive negative 03/17/17 00:51 U Marijuana (THC) Screen Presumptive negative 03/17/17 00:51 Drugs of Abuse Note Disclamer 03/17/17 00:51 Plasma/Serum Alcohol < 0.01 gm% (0-0.07) 03/16/17 19:56
[2017-03-19] MEDS: COUMADIN PO SCH (17:56)
[2017-03-19] MEDS ORDERED: AMBIEN PO PRN (21:56)
[2017-03-20 07:36] LABS: Basophils % (Auto) 0.5 % (0.0-1.8); Eosinophils # (Auto) 0.1 K/mm3 (0.0-0.4); Eosinophils % (Auto) 1.5 % (0.0-4.3); Hematocrit 46.4 % (35.5-45.6); Hemoglobin 16.1 gm/dl (11.8-15.2); Lymphocytes % (Auto) 34.2 % (13.4-35.0); Mean Corpuscular HGB Conc 35 % (32-34); Mean Corpuscular Hemoglobin 33 pg (28-32); Mean Corpuscular Volume 96 fl (84-94); Monocytes # (Auto) 0.6 K/mm3 (0.0-0.8); Monocytes % (Auto) 9.5 % (0.0-7.3); Platelet Count 250 K/mm3 (140-440); Red Blood Count 4.81 M/mm3 (3.65-5.03); Red Cell Distribution Width 12.1 % (13.2-15.2)
[2017-03-20 07:43] LABS: INR 1.12 (0.87-1.13)
[2017-03-20] MEDS: LOVENOX SUB-Q SCH (09:46)
--- NOTE | 2017-03-20 10:25 | Vascular Lab Report ---
Left Lower Extremity Venous Duplex Study: Reason for Exam: swelling of the left lower extremity. Comments on the Right: A limited duplex study was done of the proximal veins of the right lower extremity. All veins visualized are freely compressible without evidence of internal echogenicity. Flow is spontaneous and phasic throughout. No evidence of acute or chronic thrombus is seen in any of the vessels visualized. Comments on the Left: There is a thrombus in the left popliteal and gastrocnemius veins.. The remaining veins visualized are freely compressible without evidence of internal echogenicity. Spontaneous and phasic flow is absent proximally. Impression: There is acute occlusive DVT in the left popliteal vein extending into the gastrocnemius veins.
--- NOTE | 2017-03-20 11:59 | Discharge Summary ---
Providers - Providers Date of Admission: 03/17/17 08:50 Attending physician: MAXINE HERRERA MD 03/17/17 07:14 Consult to Mental Health [CONS] Urgent Reason For Exam: psych Place consult to:: school janitor storeperson Notified:: awaiting call back 03/17/17 09:57 Consult to Physician [CONS] Routine Consulting Provider: ANA MATA Reason For Exam: DVT left leg Place consult to:: HEMATOLOGY Notified:: Y If yes, spoke with:: DR MATA Time called:: 10:00 03/20/17 11:56 Consult to Case Management [CONS] Routine Services Needed at Discharge: Accelerator Technician Additional Physician Instructions: Eliquis card Primary care physician: STERNMAN Hospitalization Reason for admission: altered mental status Condition: Stable Hospital course: Patient is 26 yo with history of substance abuse. he was brought in because of altered mental status, confused after using Amphetamines day before. In Emergency room his BP was very high at 158/114. He was confused, disoriented and could not give much history. Some history was obtained from his father. Patient was diagnosed with encephalopathy and hypertensive urgency due to Amphetamine use. He also had swelling left leg and Doppler revealed acute DVT left leg. He will be admitted for further management. Patient on admission was noted to have DVT of the left leg hematology was consulted. Patient was started on heparin drip and Coumadin subsequently switched to Eliquis after extensive discussion free card was given patient was also advised on need to follow up with retail department reset outpatient. Condition at time of discharge stable he's clinically improved with no shortness of breath noted at this time. Extensive counseling was provided to the patient the need to quit substance abuse. Patient verbalized understanding rehabilitation options were provided patient was also seen by psychiatry recommended to follow up with psychiatrist outpatient he denies any suicidal or homicidal ideation Hypertensive urgency due Amphetamine use. Polysubstance abuse Amphetamine use. Toxic metabolic encephalopathy due to Amphetamine, Acute DVT left leg. Disposition: TO HOME OR SELFCARE Time spent for discharge: 35 MINS Core Measure Documentation - Palliative Care Palliative Care/ Comfort Measures: Not Applicable - Core Measures Any of the following diagnoses?: DVT/PE - VTE Discharge Requirements Deep Vein Thrombosis/Pulmonary Embolism Present on Admission: Yes Has pt received <5 days of overlap therapy or INR<2.0: No (criteria for overlap therapy at discharge: on overlap therapy for less than 5 days or INR<2.0) Anticoagulant overlap therapy prescribed at discharge: Yes Exam - Physical Exam Narrative exam: VITAL SIGNS: Reviewed. GENERAL: The patient appeared well nourished and normally developed. Vital signs as documented. HEAD: No signs of head trauma. EYES: Pupils are equal. Extraocular motions intact. EARS: Hearing grossly intact. MOUTH: Oropharynx is normal. NECK: No adenopathy, no JVD. CHEST: Chest with clear breath sounds bilaterally. No wheezes, rales, or rhonchi. CARDIAC: Regular rate and rhythm. S1 and S2, without murmurs, gallops, or rubs. VASCULAR: No Edema. Peripheral pulses normal and equal in all extremities. ABDOMEN: Soft, without detectable tenderness. No sign of distention. No rebound or guarding, and no masses palpated. Bowel Sounds normal. MUSCULOSKELETAL: Good range of motion of all major joints. Extremities without clubbing, cyanosis or edema. NEUROLOGIC EXAM: Alert and oriented x 3. No focal sensory or strength deficits. Speech normal. Follows commands. PSYCHIATRIC: Mood normal. SKIN: No rash or lesions. - Constitutional Vitals: Temp Pulse Resp BP Pulse Ox 98.3 F 65 16 125/77 98 03/20/17 07:55 03/20/17 07:55 03/20/17 07:55 03/20/17 07:55 03/20/17 07:55 Plan Activity: advance as tolerated, up only with assistance Diet: regular Follow up with: URMILA SALAS MD [Primary Care Provider] - 3-5 Days CHANDRA GOLDBERG MD [Staff Physician] - 7 Days Forms: Warfarin Discharge Instruction Prescriptions: Apixaban [Eliquis] 10 mg PO Q12HR 7 Days tablet Apixaban [Eliquis] 5 mg PO BID 30 Days tablet
[2017-03-20] MEDS ORDERED: ELIQUIS PO SCH (12:00)
[2017-03-20 15:53] VITALS: BP 133/78
[2017-03-21 12:36] LABS: Protein S, Free 101 % normal (57-171); Protein S, Total 126 % (70-140)
== END 2017-03-20 20:07 | disposition home or self-care (01) | DRG 917 ==
LOC: ED 18:49 → 4A 03-17 08:50 → 3A 03-19 16:28
PROVIDERS: ADMIT Internal Medicine; ATTEND Internal Medicine
DX: T44.901A Poisoning by unspecified drugs primarily affecting the autonomic nervous system, accidental (unintentional), initial encounter (principal); G92 Toxic encephalopathy; I16.1 Hypertensive emergency; I82.432 Acute embolism and thrombosis of left popliteal vein; T43.625A Adverse effect of amphetamines, initial encounter; F19.10 Other psychoactive substance abuse, uncomplicated; F15.90 Other stimulant use, unspecified, uncomplicated; F17.210 Nicotine dependence, cigarettes, uncomplicated; Y92.89 Other specified places as the place of occurrence of the external cause; Z79.899 Other long term (current) drug therapy
CPT/HCPCS: 36415; 80048; 80307; 80320; 81001; 82550; 83516; 84439; 84443; 85025; 85210; 85220; 85301; 85305; 85610; 85613; 93005; 93010; 96361; 96372; 96374; 96375; G0480; J0360; J1650; J2060; J7030

== ENCOUNTER 2017-10-30 15:48 | Emergency (ER) | payer SELFPAY ==
--- NOTE | 2017-10-30 19:46 | Emergency Department Report ---
ED ENT HPI - General Chief complaint: Dental/Oral Stated complaint: TOOTHACHE Time Seen by Provider: 10/30/17 18:41 Source: patient Mode of arrival: Ambulatory Limitations: No Limitations - History of Present Illness Initial comments: This is a 27-year-old male nontoxic, well nourished in appearance, no acute signs of distress presents to the ED with c/o of left upper toothache 1 week. Patient denies following up with a dentist. Patient stated that pain radiates from his job to his left side of head. Patient otherwise denies any head trauma. Patient describes toothache as aching level of 8 out of 10. Patient denies any facial swelling. Patient denies any numbness, tingling, fever, chills, headache, stiff neck, abdominal pain, chest pain, shortness of breath. Patient denies any drug allergies or significant past medical history. MD complaint: tooth pain -: days(s) (3) Location: tooth # 1 - pain here Severity: mild Severity scale (0 -10): 8 Quality: aching Consistency: constant Improves with: none Worsens with: none Context- Dental: history of dental caries, poor dental care Associated Symptoms: gum swelling, toothache. denies: fever, cough, pain with swallowing, sore throat, tinnitus, hearing loss, discharge from ear, rhinorrhea - Related Data Previous Rx's Medication Instructions Recorded Last Taken Type Apixaban [Eliquis] 5 mg PO BID 30 Days tablet 03/20/17 Unknown Rx Apixaban [Eliquis] 10 mg PO Q12HR 7 Days tablet 03/20/17 Unknown Rx Amoxicillin/K Clav Tab [Augmentin 1 tab PO Q12HR #20 tab 10/30/17 Unknown Rx 875 mg] Chlorhexidine Mouthwash [Peridex] 15 ml MM BID #1 bottle 10/30/17 Unknown Rx Tramadol HCl [Ultram] 50 mg PO Q6H PRN #12 tablet 10/30/17 Unknown Rx Allergies Allergy/AdvReac Type Severity Reaction Status Date / Time No Known Allergies Allergy Verified 10/30/17 16:18 ED Dental HPI - General Chief complaint: Dental/Oral Stated complaint: TOOTHACHE Time Seen by Provider: 10/30/17 18:41 Source: patient Mode of arrival: Ambulatory Limitations: No Limitations - Related Data Previous Rx's Medication Instructions Recorded Last Taken Type Apixaban [Eliquis] 5 mg PO BID 30 Days tablet 03/20/17 Unknown Rx Apixaban [Eliquis] 10 mg PO Q12HR 7 Days tablet 03/20/17 Unknown Rx Amoxicillin/K Clav Tab [Augmentin 1 tab PO Q12HR #20 tab 10/30/17 Unknown Rx 875 mg] Chlorhexidine Mouthwash [Peridex] 15 ml MM BID #1 bottle 10/30/17 Unknown Rx Tramadol HCl [Ultram] 50 mg PO Q6H PRN #12 tablet 10/30/17 Unknown Rx Allergies Allergy/AdvReac Type Severity Reaction Status Date / Time No Known Allergies Allergy Verified 10/30/17 16:18 ED Review of Systems ROS: Stated complaint: TOOTHACHE Other details as noted in HPI Constitutional: denies: chills, fever Eyes: denies: eye pain, eye discharge, vision change ENT: dental pain. denies: ear pain, throat pain Respiratory: denies: cough, shortness of breath, wheezing Cardiovascular: denies: chest pain, palpitations Endocrine: no symptoms reported Gastrointestinal: denies: abdominal pain, nausea, diarrhea Genitourinary: denies: urgency, dysuria Musculoskeletal: denies: back pain, joint swelling, arthralgia Skin: denies: rash, lesions Neurological: denies: headache, weakness, paresthesias Psychiatric: denies: anxiety, depression Hematological/Lymphatic: denies: easy bleeding, easy bruising ED Past Medical Hx - Past Medical History Previous Medical History?: Yes Hx Congestive Heart Failure: No Hx Diabetes: No Hx Psychiatric Treatment: Yes (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) Hx Asthma: Yes Hx COPD: No - Surgical History Past Surgical History?: No - Social History Smoking Status: Current Every Day Smoker Substance Use Type: None - Medications Home Medications: Home Medications Medication Instructions Recorded Confirmed Last Taken Type Apixaban [Eliquis] 5 mg PO BID 30 Days tablet 03/20/17 Unknown Rx Apixaban [Eliquis] 10 mg PO Q12HR 7 Days tablet 03/20/17 Unknown Rx Amoxicillin/K Clav Tab [Augmentin 1 tab PO Q12HR #20 tab 10/30/17 Unknown Rx 875 mg] Chlorhexidine Mouthwash [Peridex] 15 ml MM BID #1 bottle 10/30/17 Unknown Rx Tramadol HCl [Ultram] 50 mg PO Q6H PRN #12 tablet 10/30/17 Unknown Rx ED Physical Exam - General Limitations: No Limitations General appearance: alert, in no apparent distress - Head Head exam: Present: atraumatic, normocephalic - Eye Eye exam: Present: normal appearance Pupils: Present: normal accommodation - ENT ENT exam: Present: mucous membranes moist, TM's normal bilaterally, normal external ear exam - Expanded ENT Exam Expanded Ear exam: Present: normal external inspection Mouth exam: Present: normal external inspection, tongue normal. Absent: drooling, trismus, muffled voice, tongue elevation, laceration Teeth exam: Present: dental caries, fractured tooth #, dental tenderness #, gingival enlargement, other (no facial swelling) Throat exam: Positive: normal inspection, other (Uvula midline). Negative: tonsillar erythema, tonsillomegaly, tonsillar exudate, R peritonsillar mass, L peritonsillar mass - Neck Neck exam: Present: normal inspection, full ROM. Absent: tenderness, meningismus, lymphadenopathy - Respiratory Respiratory exam: Present: normal lung sounds bilaterally. Absent: respiratory distress - Cardiovascular Cardiovascular Exam: Present: regular rate, normal rhythm. Absent: systolic murmur, diastolic murmur, rubs, gallop - GI/Abdominal GI/Abdominal exam: Present: soft, normal bowel sounds - Rectal Rectal exam: Present: deferred - Extremities Exam Extremities exam: Present: normal inspection - Back Exam Back exam: Present: normal inspection - Neurological Exam Neurological exam: Present: alert, oriented X3 - Psychiatric Psychiatric exam: Present: normal affect, normal mood - Skin Skin exam: Present: warm, dry, intact, normal color. Absent: rash ED Course Vital Signs 10/30/17 16:16 Temperature 98.7 F Pulse Rate 95 H Respiratory 18 Rate Blood Pressure 144/100 O2 Sat by Pulse 98 Oximetry - Reevaluation(s) Reevaluation #1: 10/30/17 19:47 Patient is speaking in full sentences with no signs of distress noted. Critical care attestation.: If time is entered above; I have spent that time in minutes in the direct care of this critically ill patient, excluding procedure time. ED Disposition Clinical Impression: Dental caries, Gingivitis Disposition: DC-01 TO HOME OR SELFCARE Is pt being admited?: No Does the pt Need Aspirin: No Condition: Stable Instructions: Dental Caries (ED), Gingivitis (ED), Tramadol (By mouth) Additional Instructions: Follow-up with a dentist doctor in 3-5 days or if symptoms worsen and continue return to emergency room as soon as possible. Do not operate any machinery while taking Ultram as this may cause drowsiness. Prescriptions: Amoxicillin/K Clav Tab [Augmentin 875 mg] 1 tab PO Q12HR #20 tab Chlorhexidine Mouthwash [Peridex] 15 ml MM BID #1 bottle Tramadol HCl [Ultram] 50 mg PO Q6H PRN #12 tablet PRN Reason: Pain , Severe (7-10) Referrals: PRIMARY CAREMD [Primary Care Provider] - 3-5 Days CHANDRA DANIELS MD [Staff Physician] - 3-5 Days [facility] [Outside] - 3-5 Days Forms: Work/School Release Form(ED)
[2017-10-30 20:02] VITALS: BP 131/95
== END 2017-10-30 20:05 | disposition home or self-care (01) ==
LOC: ED 15:48
DX: K02.9 Dental caries, unspecified (principal); K05.10 Chronic gingivitis, plaque induced; J45.909 Unspecified asthma, uncomplicated; F17.200 Nicotine dependence, unspecified, uncomplicated
CPT/HCPCS: 99282

== ENCOUNTER 2020-05-17 23:17 | Emergency (ER) | payer SELFPAY ==
[2020-05-18] MEDS ORDERED: oxyCODONE /ACETAMINOPHEN 5-325MG TAB PO ONE (01:54)
--- NOTE | 2020-05-18 01:59 | Emergency Department Report ---
ED General Adult HPI - General Chief complaint: Extremity Injury, Lower Stated complaint: SWOLLEN LEGS/ANKLES Time Seen by Provider: 05/18/20 01:54 Source: patient Mode of arrival: Ambulatory Limitations: No Limitations - History of Present Illness Initial comments: 29-year-old -Italian male patient presents with complaints of bilateral leg pain and swelling x2 weeks. He states that he has chronic swelling of the left leg and history of DVT 2 years ago-patient states at that time he was treated with Eliquis. He denies any history of PE or current shortness of breath, chest pain, hemoptysis/cough, recent long travel/surgeries, or history of cancer. Patient rates his current pain as a 9/10 in severity. He denies any other past medical history. - Related Data Previous Rx's Medication Instructions Recorded Last Taken Type Apixaban [Eliquis] 5 mg PO BID 30 Days tablet 03/20/17 Unknown Rx Apixaban [Eliquis] 10 mg PO Q12HR 7 Days tablet 03/20/17 Unknown Rx Amoxicillin/K Clav Tab [Augmentin 1 tab PO Q12HR #20 tab 10/30/17 Unknown Rx 875 mg] Chlorhexidine Mouthwash [Peridex] 15 ml MM BID #1 bottle 10/30/17 Unknown Rx Tramadol HCl [Ultram] 50 mg PO Q6H PRN #12 tablet 10/30/17 Unknown Rx Naproxen 500 mg PO BID PRN #14 tablet 05/18/20 Unknown Rx Allergies Allergy/AdvReac Type Severity Reaction Status Date / Time No Known Allergies Allergy Verified 10/30/17 16:18 ED Review of Systems ROS: Stated complaint: SWOLLEN LEGS/ANKLES Other details as noted in HPI Constitutional: denies: chills, fever, malaise Respiratory: denies: cough, shortness of breath Cardiovascular: denies: chest pain Gastrointestinal: denies: abdominal pain, nausea, vomiting Skin: denies: rash, change in color ED Past Medical Hx - Past Medical History Previous Medical History?: Yes Hx Congestive Heart Failure: No Hx Diabetes: No Hx Deep Vein Thrombosis: Yes (left leg) Hx Psychiatric Treatment: Yes (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) Hx Asthma: Yes Hx COPD: No - Surgical History Past Surgical History?: No - Social History Smoking Status: Current Every Day Smoker Substance Use Type: None - Medications Home Medications: Home Medications Medication Instructions Recorded Confirmed Last Taken Type Apixaban [Eliquis] 5 mg PO BID 30 Days tablet 03/20/17 Unknown Rx Apixaban [Eliquis] 10 mg PO Q12HR 7 Days tablet 03/20/17 Unknown Rx Amoxicillin/K Clav Tab [Augmentin 1 tab PO Q12HR #20 tab 10/30/17 Unknown Rx 875 mg] Chlorhexidine Mouthwash [Peridex] 15 ml MM BID #1 bottle 10/30/17 Unknown Rx Tramadol HCl [Ultram] 50 mg PO Q6H PRN #12 tablet 10/30/17 Unknown Rx Naproxen 500 mg PO BID PRN #14 tablet 05/18/20 Unknown Rx ED Physical Exam - General Limitations: No Limitations General appearance: alert, in no apparent distress, obese - Head Head exam: Present: atraumatic, normocephalic - Eye Eye exam: Present: normal appearance. Absent: scleral icterus - Neck Neck exam: Present: normal inspection - Respiratory Respiratory exam: Present: normal lung sounds bilaterally. Absent: respiratory distress - Cardiovascular Cardiovascular Exam: Present: regular rate, normal rhythm - GI/Abdominal GI/Abdominal exam: Present: soft. Absent: distended, tenderness - Extremities Exam Extremities exam: Present: pedal edema, calf tenderness (Bilateral with pitting edema, left greater than right), other (No pallor noted to legs or feet; bilateral normal pedal pulses; normal temperature of skin noted bilaterally to lower legs and feet; normal sensation noted) - Neurological Exam Neurological exam: Present: alert, oriented X3, normal gait - Psychiatric Psychiatric exam: Present: normal affect, normal mood - Skin Skin exam: Present: warm, dry, intact, normal color. Absent: rash ED Course Vital Signs 05/18/20 05/18/20 00:11 03:05 Temperature 97.9 F Pulse Rate 106 H 92 H Respiratory 17 16 Rate Blood Pressure 128/82 142/83 O2 Sat by Pulse 97 96 Oximetry ED Medical Decision Making - Lab Data Result diagrams: 05/18/20 01:55 05/18/20 01:55 Lab Results 05/18/20 05/18/20 Range/Units 01:55 01:55 WBC 6.9 (4.5-11.0) K/mm3 RBC 4.13 (3.65-5.03) M/mm3 Hgb 13.3 (11.8-15.2) gm/dl Hct 38.5 (35.5-45.6) % MCV 93 (84-94) fl MCH 32 (28-32) pg MCHC 35 H (32-34) % RDW 11.7 L (13.2-15.2) % Plt Count 230 (140-440) K/mm3 Lymph % (Auto) 43.2 H (13.4-35.0) % Upson % (Auto) 12.6 H (0.0-7.3) % Eos % (Auto) 2.0 (0.0-4.3) % Baso % (Auto) 0.4 (0.0-1.8) % Lymph # (Auto) 3.0 (1.2-5.4) K/mm3 Upson # (Auto) 0.9 H (0.0-0.8) K/mm3 Eos # (Auto) 0.1 (0.0-0.4) K/mm3 Baso # (Auto) 0.0 (0.0-0.1) K/mm3 Seg Neutrophils % 41.8 (40.0-70.0) % Seg Neutrophils # 2.9 (1.8-7.7) K/mm3 Sodium 138 (137-145) mmol/L Potassium 4.2 (3.6-5.0) mmol/L Chloride 98.9 (98-107) mmol/L Carbon Dioxide 32 H (22-30) mmol/L Anion Gap 11 mmol/L BUN 8 L (9-20) mg/dL Creatinine 1.0 (0.8-1.3) mg/dL Estimated GFR > 60 ml/min BUN/Creatinine Ratio 8 % Glucose 96 (75-100) mg/dL Calcium 9.3 (8.4-10.2) mg/dL Total Bilirubin 0.40 (0.1-1.2) mg/dL AST 25 (5-40) units/L ALT 25 (7-56) units/L Alkaline Phosphatase 81 (35-129) units/L NT-Pro-B Natriuret Pep 10.40 (0-450) pg/mL Total Protein 6.4 (6.3-8.2) g/dL Albumin 4.1 (3.9-5) g/dL Albumin/Globulin Ratio 1.8 % - Radiology Data Radiology results: report reviewed DUPLEX DOPPLER LOWER EXTREMITY VEINS, BILATERAL INDICATION: bilateral pain and swelling; hx of dvt. TECHNIQUE: Duplex doppler imaging was performed through the veins of both lower extremities using venous compression and other maneuvers. COMPARISON: None available. FINDINGS: Right Common femoral vein: Negative. Right Superficial femoral vein: Negative. Right Popliteal vein: Negative. Right Calf veins: Negative. Left Common femoral vein: Negative. Left Superficial femoral vein: Negative. Left Popliteal vein: No acute deep venous thrombosis. When of atrophy left popl iteal vein is likely due to previous DVT. Left Calf veins: Negative. Additional findings: None. IMPRESSION: 1. Negative for acute deep venous thrombosis. 2. Probable changes related to previous DVT left popliteal vein. - Medical Decision Making 29-year-old -Italian male patient presents with complaints of bilateral leg pain and swelling x2 weeks. He states that he has chronic swelling of the left leg and history of DVT 2 years ago-patient states at that time he was treated with Eliquis. He denies any history of PE or current shortness of breath, chest pain, hemoptysis/cough, recent long travel/surgeries, or history of cancer. Patient rates his current pain as a 9/10 in severity. He denies any other past medical history. Lateral pain the edema, left greater than right noted on exam. Ultrasound is negative for DVT. CBC, CMP, and BNP are without acute abnormalities. Suspect PVD. Recommend follow-up with vascular specialist and PCP. Also recommend compression hose and elevation of legs. He is well-appearing, his vitals are normal, he is stable for discharge home. Strict return precautions were discussed in detail with patient who verbalizes understanding. Critical care attestation.: If time is entered above; I have spent that time in minutes in the direct care of this critically ill patient, excluding procedure time. ED Disposition Clinical Impression: Bilateral leg edema Disposition: - TO HOME OR SELFCARE Is pt being admited?: No Condition: Stable Instructions: Edema, Peripheral Vascular Disease, Low-Sodium Eating Plan Prescriptions: Naproxen 500 mg PO BID PRN #14 tablet PRN Reason: pain Referrals: MALINI JOHNSON MD [Staff Physician] - 2-3 Days [facility] [place] [Provider Group] - 2-3 Days Forms: Work/School Release Form(ED)
[2020-05-18 02:23] LABS: Basophils % (Auto) 0.4 % (0.0-1.8); Eosinophils # (Auto) 0.1 K/mm3 (0.0-0.4); Hematocrit 38.5 % (35.5-45.6); Hemoglobin 13.3 gm/dl (11.8-15.2); Lymphocytes % (Auto) 43.2 % (13.4-35.0); Mean Corpuscular HGB Conc 35 % (32-34); Mean Corpuscular Volume 93 fl (84-94); Monocytes # (Auto) 0.9 K/mm3 (0.0-0.8); Monocytes % (Auto) 12.6 % (0.0-7.3); Platelet Count 230 K/mm3 (140-440); Red Blood Count 4.13 M/mm3 (3.65-5.03); Red Cell Distribution Width 11.7 % (13.2-15.2)
[2020-05-18 02:37] LABS: Alanine Aminotransferase 25 units/L (7-56); Albumin 4.1 g/dL (3.9-5); BUN/Creatinine Ratio 8; Blood Urea Nitrogen 8 mg/dL (9-20); Calcium 9.3 mg/dL (8.4-10.2); Hemolysis Index 0
--- NOTE | 2020-05-18 02:47 | Vascular Lab Report ---
DUPLEX DOPPLER LOWER EXTREMITY VEINS, BILATERAL INDICATION: bilateral pain and swelling; hx of dvt. TECHNIQUE: Duplex doppler imaging was performed through the veins of both lower extremities using venous aimee jayde and other maneuvers. COMPARISON: None available. FINDINGS: Right Common femoral vein: Negative. Right Superficial femoral vein: Negative. Right Popliteal vein: Negative. Right Calf veins: Negative. Left Common femoral vein: Negative. Left Superficial femoral vein: Negative. Left Popliteal vein: No acute deep venous thrombosis. When of atrophy left popliteal vein is likely d ue to previous DVT. Left Calf veins: Negative. Additional findings: None. IMPRESSION: 1. Negative for acute deep venous thrombosis. 2. Probable changes related to previous DVT left popliteal vein. Signer Name: Nate Wise MD Signed: 05/18/2020 2:43 AM Workstation Name: [id number]
[2020-05-18] MEDS: oxyCODONE /ACETAMINOPHEN 5-325MG TAB PO ONE ×2 (03:33→03:35)
[2020-05-18 04:11] VITALS: BP 142/83
== END 2020-05-18 04:13 | disposition home or self-care (01) ==
LOC: ED 23:17
DX: R60.0 Localized edema (principal); J45.909 Unspecified asthma, uncomplicated; F17.200 Nicotine dependence, unspecified, uncomplicated; Z79.899 Other long term (current) drug therapy
CPT/HCPCS: 36415; 80053; 83880; 85025; 93970